=== PATIENT | male | born 1980 | race Caucasian/White ===

== ENCOUNTER 2020-11-19 12:11 | Emergency (ER) | payer BC ==
[~2020-11-19] VITALS: Ht 170.2 cm; Wt 99.8 kg
[2020-11-19 12:23] VITALS: BP 133/105
--- NOTE | 2020-11-19 15:53 | NUR ---
PT. VERBALIZED UNDERSTANDING OF AFTERCARE INSTRUCTIONS.Patient discharged to home in stable condition. Written and verbal after care instructions given. Patient verbalizes understanding of instruction.
== END 2020-11-19 15:54 | disposition home or self-care (01) ==
LOC: ER 12:14
DX: S06.0X0A Concussion without loss of consciousness, initial encounter (principal); S13.8XXA Sprain of joints and ligaments of other parts of neck, initial encounter; S80.212A Abrasion, left knee, initial encounter; S80.211A Abrasion, right knee, initial encounter; S00.81XA Abrasion of other part of head, initial encounter; W18.39XA Other fall on same level, initial encounter; Y93.01 Activity, walking, marching and hiking; Y92.89 Other specified places as the place of occurrence of the external cause; Y99.8 Other external cause status
CPT/HCPCS: 70450-TC; 72125-TC

== ENCOUNTER 2021-02-19 09:00 | Outpatient (CLI) | payer BC | END 2021-02-19 23:59 | disposition home or self-care (01) | LOC: WOU 09:00 | PROVIDERS: ATTEND Podiatrist Foot & Ankle Surgery | DX: M76.822 Posterior tibial tendinitis, left leg (principal); M76.821 Posterior tibial tendinitis, right leg; L84 Corns and callosities; R60.0 Localized edema; M79.672 Pain in left foot; M79.671 Pain in right foot | CPT/HCPCS: G0463 ==